=== PATIENT | female | born 1995 | race Caucasian/White ===

== ENCOUNTER → 2019-12-21 | Outpatient (CLI) | payer SELFPAY ==
[~2019-12-21] MED LIST: NO HOME MEDICATIONS; SEROQUEL XR150 MG PO; ZOLOFT 25MG25 MG PO
== END ==
LOC: ZCOL.LAB 18:26
DX: B34.9 Viral infection, unspecified (principal); G52.0 Disorders of olfactory nerve; Z20.828 Contact with and (suspected) exposure to other viral communicable diseases